=== PATIENT | female | born 1960 | race Caucasian/White ===

== ENCOUNTER 2016-11-21 05:08 | Observation (INO) | payer BC ==
[~2016-11-21] VITALS: Ht 167.6 cm; Wt 108.0 kg
[~2016-11-21 05:08] MED LIST: COZAAR100 MG PO; FLUOXETINE HCL20 MG PO; HYDROCODON-ACE1 EA11 PO; LEVAQUIN500 MG PO; NAPROXEN500 MG PO; NEXIUM20 MG PO; NORCO 10-325 T1 EACH PO; NORCO 5-325 TA1 EACH PO; TUMS200 MG PO
--- NOTE | 2016-11-21 06:40 | NUR ---
PT ARRIVES TO CCU ROOM 127, REPORT GIVEN BY CASSANDRA ALANIZ. PT ALERT AND AWAKE, CARDIZEM DRIP INFUSING AT 15MG HR ON ARRIVAL, TITRATED UP TO 20MG FOR RATE 140-150'S. PT DENIES CHEST PAIN/PRESSURE OR ANY OTHER SX. STATES SHE IS VERY THIRTY, WATER GIVEN.
--- NOTE | 2016-11-21 07:20 | NUR ---
PT UP TO VOID THEN BACK TO BED, STEADY ON FEET, DENIES DIZZINESS/LIGHTHEADEDNESS, HR 120-160'S. STATES SHE HAS BEEN HAVING TO URINATE A LOT IN THE LAST DAY.
--- NOTE | 2016-11-21 07:28 | NUR ---
DR ORO IN TO SEE PT.
--- NOTE | 2016-11-21 08:01 | NUR ---
INSPECTOR WIRE ROPE IN ROOM WITH PT.
--- NOTE | 2016-11-21 08:53 | NUR ---
PT UP TO BATHROOM AND BACK TO BED. PTS HR UP INTO 150'S WITH ACTIVITY.
--- NOTE | 2016-11-21 09:57 | NUR ---
PT CONTINUES ON CARDIZEM DRIP. HR STILL INCREASING TO 150'S AT TIMES.
--- NOTE | 2016-11-21 10:50 | NUR ---
pastoral care in room with pt.
[2016-11-21] MEDS ORDERED: HYDROCHLOROTH12.5 M1 PO (11:08)
[2016-11-21] MEDS ORDERED: LOSARTAN POTAS100 MG PO (11:08)
--- NOTE | 2016-11-21 11:09 | NUR ---
MED REC COMPLETED
--- NOTE | 2016-11-21 11:16 | NUR ---
pt resting in bed with at bedside. plan of care discussed with pt. verbalized understanding. cardizem drip remains running at 20mg/hr.
--- NOTE | 2016-11-21 11:56 | NUR ---
PT UP TO BATHROOM AND BACK TO BED. HR INTO 160'S WITH ACTIVITY. ONCE BACK IN BED HR 117.
--- NOTE | 2016-11-21 12:32 | NUR ---
TITRATED CARDIZEM DRIP TO 15ML/HR.
--- NOTE | 2016-11-21 13:42 | NUR ---
PT RESTING IN BED, AND VISITOR IN WITH HER. STAYED JUST A MOMENT-I COULD TELL THAT THIS HAS FRIGHTENED HER. WILL CONTINUE TO FOLLOW
--- NOTE | 2016-11-21 13:49 | NUR ---
PT COMPLAINED OF HEADACHE. ORDER RECIEVED FOR TYLENOL 650MG PO.
--- NOTE | 2016-11-21 14:09 | NUR ---
PT UP TO BATHROOM AND BACK TO BED. HR IN THE 150'S WHILE UP AND AMBULATING. ONCE BACK IN BED PTS HR BACK DOWN INTO THE 120'S. WILL CONTINUE TO MONITOR HR.
--- NOTE | 2016-11-21 14:55 | NUR ---
PT HR BACK INTO 120'S-130'S AT REST. INCREASED DRIP BACK TO 20ML/HR.
--- NOTE | 2016-11-21 15:15 | NUR ---
PTS HR DOWN INTO THE 70-80'S TITRATED DRIP DOWN TO 15ML/HR.
--- NOTE | 2016-11-21 15:39 | NUR ---
PT UP TO BATHROOM AND BACK TO BED. PT HR REMAINS 80-90'S. TITRATED DRIP DOWN TO 10ML/HR.
--- NOTE | 2016-11-21 15:50 | NUR ---
TITRATED DRIP TO 5ML/HR.
--- NOTE | 2016-11-21 17:18 | EKG ---
[facility] [address] [facility] [place] [address] Signed Atrial fibrillation with rapid ventricular response Left axis deviation Inferior infarct , age undetermined Abnormal ECG No previous ECGs available Confirmed by TYREE ORO MD ([id number]) on 11/21/2016 5:18:02 PM Electronically Signed By: TYREE ORO MD 11/21/16 1718 PATIENT NAME: LANDINHARMAN SAM Electrocardiogram DATE OF : 62 PHYSICIAN: TYREE ORO MD REPORT #: [id number] REPORT IS CONFIDENTIAL AND NOT TO BE RELEASED WITHOUT AUTHORIZATION
--- NOTE | 2016-11-21 17:32 | NUR ---
PT UP TO BATHROOM AND BACK TO CHAIR. PT HR INCREASED TO THE 130'S WITH ACTIVITY. ONCE BACK IN CHAIR. HR 70-90'S. REMAINS IRREGULAR.
--- NOTE | 2016-11-21 18:25 | NUR ---
PT CONVERTED TO SINUS NELLA @ 2162. NOTIFIED. PTS HR 52.
--- NOTE | 2016-11-21 20:20 | NUR ---
PT A/O, C/O BROOKS 2\10, DOES NOT WANT TYLENOL AT THIS TIME, SLEEPING IN A BED THAT IS NOT HERS AND PILLOWS BEHIND NECK REPOSITIONED FOR COMFORT, MUSCULAR NECK ORIGIN PER PT.
--- NOTE | 2016-11-22 01:48 | NUR ---
PT IS SLEEPING, 1 LPM NC, O2SAT 91%, SR/SB 53-68, PERFUSION NORMAL, BP WNL. PT USES CALL LIGHT, OCCASIONAL OOB ATTEMPTS ON OWN.
--- NOTE | 2016-11-22 04:18 | NUR ---
PT IS SLEEPING, O2 SAT 94% 2 LPM NC, BREATHES THROUGH MOUTH WHILE SLEEPING, APPEARS COMFORTABLE, NO ACUTE DISTRESS.
--- NOTE | 2016-11-22 07:51 | NUR ---
PT SLEEPING, VS STABLE, HR 53-68, PERFUSION WNL, MENTATION WNL. USES CALL LIGHT. NO CHANGES FROM 2ND ASSESSMENT ON NOC SHIFT.
--- NOTE | 2016-11-22 08:15 | NUR ---
PT ALERT AND ORIENTED X4, ABLE TO AMBULATED INDEPENDENTLY. PT C/O 4/10 NAGGING HEADACHE. DENIES NAUSEA AND SOB. PT STATES "WHEN CAN I GO HOME, I THINK I'M READY, I FEEL BETTER". PT ABLE TO INDEPENDENTLY DO ADL'S IN BATHROOM, WASH FACE, BRUSH TEETH, TOILETING. PT VITALS WNL.
[2016-11-22] MEDS ORDERED: DILTIAZEM 24HR240 M3 PO (08:28)
--- NOTE | 2016-11-22 09:40 | NUR ---
PT SITTING UP IN CHAIR EATING BREAKFAST. ALERT AND ORIENTED X4.
--- NOTE | 2016-11-22 10:45 | NUR ---
PT LEFT FLOOR VIA WHEELCHAIR WITH SPOUSE AND DAUGHTER. ALL PERSONAL BELONGINGS RETURNED TO PT.
== END 2016-11-22 10:45 | disposition home or self-care (01) ==
LOC: ED 05:08 → CCU 05:18
PROVIDERS: ADMIT Internal Medicine
DX: I48.91 Unspecified atrial fibrillation (principal); I10 Essential (primary) hypertension; Z79.1 Long term (current) use of non-steroidal anti-inflammatories (NSAID); Z79.891 Long term (current) use of opiate analgesic; Z79.899 Other long term (current) drug therapy; Z88.1 Allergy status to other antibiotic agents; Z88.0 Allergy status to penicillin
CPT/HCPCS: 36415; 71010; 80048; 80053; 83735; 84443; 84484; 85025; 85610; 85730; 93005; 93010; 93306; 96361; 96365; 96366; 96375; 99284; G0378; J7030

== ENCOUNTER 2019-09-11 21:00 | Emergency (ER) | payer BC ==
[~2019-09-11] VITALS: Ht 167.6 cm; Wt 108.0 kg
[~2019-09-11 21:00] MED LIST changes: +DILTIAZEM 24HR240 M3 PO; +HYDROCHLOROTH12.5 M1 PO; +LOSARTAN POTAS100 MG PO
[2019-09-11] MEDS ORDERED: SPIRONOLACTONE1 EACH PO (21:19)
[2019-09-11] MEDS ORDERED: VITAMIN D21250 MCG (21:20)
[2019-09-11] MEDS ORDERED: ASPIRIN81 MG PO (21:20)
[2019-09-11] MEDS ORDERED: BACTRIM DS TAB1 EACH PO (21:28)
== END 2019-09-11 21:44 | disposition home or self-care (01) ==
LOC: ED 21:00
DX: L03.115 Cellulitis of right lower limb (principal); I10 Essential (primary) hypertension; Z88.0 Allergy status to penicillin; Z88.1 Allergy status to other antibiotic agents; Z79.899 Other long term (current) drug therapy; Z79.82 Long term (current) use of aspirin
CPT/HCPCS: 99283

== ENCOUNTER 2021-06-09 16:00 | Emergency (ER) | payer BC ==
[~2021-06-09] VITALS: Ht 167.6 cm; Wt 108.0 kg
[~2021-06-09 16:00] MED LIST changes: +ASPIRIN81 MG PO; +BACTRIM DS TAB1 EACH PO; +SPIRONOLACTONE1 EACH PO; +VITAMIN D21250 MCG
[2021-06-09] MEDS ORDERED: CEPHALEXIN500 M1 PO (16:52)
== END 2021-06-09 17:22 | disposition home or self-care (01) ==
LOC: ED 16:00
DX: L03.115 Cellulitis of right lower limb (principal); I10 Essential (primary) hypertension; Z88.0 Allergy status to penicillin; Z88.1 Allergy status to other antibiotic agents; Z79.899 Other long term (current) drug therapy; Z79.82 Long term (current) use of aspirin
CPT/HCPCS: 99283